=== PATIENT | male | born 1960 | race Caucasian/White ===

== ENCOUNTER 2018-05-25 11:09 | Emergency (ER) | payer OTHER ==
[2018-05-25 11:27] VITALS: BP 160/91; PULSE 71; RESP 17; TEMP 97.9; O2SAT 99
--- NOTE | 2018-05-25 12:41 | RAD ---
Date of service: 05/25/2018 PROCEDURE: Radiographs of the left clavicle. HISTORY: Questionable trauma-r/o fx COMPARISON: Correlation made with concurrent radiographs of the left shoulder FINDINGS: LEFT CLAVICLE: No fracture or focal lesion. JOINTS: Left acromioclavicular and glenohumeral joints are grossly unremarkable. SOFT TISSUES: Grossly unremarkable. OTHER FINDINGS: None. IMPRESSION: Normal radiographs of the left clavicle.
--- NOTE | 2018-05-25 13:14 | RAD ---
Date of service: 05/25/2018 PROCEDURE: Radiographs of the Left Shoulder HISTORY: ? trauma - r/o fx COMPARISON: No prior. FINDINGS: BONES: No fracture. JOINTS: No significant appearing glenohumeral and acromioclavicular arthrosis SOFT TISSUES: Mild soft tissue bulging prominence superior aspect of left acromioclavicular joint OTHER FINDINGS: None. IMPRESSION: No fracture or lytic lesions. No dislocation.
--- NOTE | 2018-05-25 13:16 | C.PDOC ---
History Of Present Illness 57 y/o male presents to the ER for evaluation of left shoulder pain which began last night. Patient states that he fell asleep with his left arm underneath him. Patient reports that he did not take any medications for the pain. Denies having direct trauma, CP,SOB,weakness and numbness to left arm. Time Seen by Provider: 05/25/18 11:22 Chief Complaint (Nursing): Upper Extremity Problem/Injury History Per: Patient History/Exam Limitations: no limitations Onset/Duration Of Symptoms: Days Current Symptoms Are (Timing): Still Present Severity: Moderate Past Medical History Reviewed: Historical Data, Nursing Documentation, Vital Signs Vital Signs: Last Vital Signs Temp 97.9 F 05/25/18 11:23 Pulse 71 05/25/18 11:23 Resp 17 05/25/18 11:23 BP 160/91 H 05/25/18 11:23 Pulse Ox 99 05/25/18 11:23 - Medical History PMH: No Chronic Diseases Denies: Chronic Kidney Disease Surgical History: No Surg Hx Family History: States: No Known Family Hx - Social History Hx Alcohol Use: No Hx Substance Use: No Review Of Systems Except As Marked, All Systems Reviewed And Found Negative. Cardiovascular: Negative for: Chest Pain Respiratory: Negative for: Shortness of Breath Musculoskeletal: Positive for: Shoulder Pain (left shoulder pain) Neurological: Negative for: Weakness, Numbness Physical Exam - Physical Exam Appears: Non-toxic, No Acute Distress Skin: Normal Color, Warm, Dry Head: Atraumatic, Normacephalic Eye(s): bilateral: Normal Inspection Nose: Normal Oral Mucosa: Moist Neck: Supple Chest: Symmetrical Cardiovascular: Rhythm Regular Respiratory: Normal Breath Sounds, No Rales, No Rhonchi, No Wheezing Extremity: Normal ROM, Tenderness (tenderness to proximal medial aspect of left clavicle, tenderness to anterior aspect of left shoulder), No Swelling Neurological/Psych: Oriented x3, Normal Speech ED Course And Treatment O2 Sat by Pulse Oximetry: 99 (RA) Pulse Ox Interpretation: Normal Medical Decision Making Medical Decision Making: Plan: --X-Ray-Left Clavicle --X-Ray-Left Shoulder Updates: X-Rays are negative for fracture or dislocations.Patient has been discharged and instructed to follow up with PMD in 2-3 days. Disposition - [facility] - Disposition: HOME/ ROUTINE Disposition Time: 12:20 Condition: GOOD Additional Instructions: MAYNOR SONI, thank you for letting us take care of you today. The emergency medical care you received today was directed at your acute symptoms. If you were prescribed any medication, please fill it and take as directed. It may take several days for your symptoms to resolve. Return to the Emergency Department if your symptoms worsen, do not improve, or if you have any other problems. Please contact your doctor or call one of the physicians/clinics you have been referred to that are listed on the Patient Visit Information form that is included in your discharge packet. Bring any paperwork you were given at [facility] with you along with any medications you are taking to your follow up visit. Our treatment cannot replace ongoing medical care by a primary care provider outside of the emergency department. Thank you for allowing the [facility] team to be part of your care today. Follow up with your primary care doctor in 2-3 days for re-evaluation and further management. Prescriptions: Ibuprofen [Motrin] 600 mg PO Q6 PRN #20 tab PRN Reason: Pain, Moderate (4-7) Instructions: Shoulder Sprain (DC) Forms: [employer] (Nauruan) - Clinical Impression Clinical Impression: Shoulder sprain - Scribe Statement The provider has reviewed the documentation as recorded by the Uzma Marc Provider Attestation: All medical record entries made by the Taraibjoel were at my direction and personally dictated by me. I have reviewed the chart and agree that the record accurately reflects my personal performance of the history, physical exam, medical decision making, and the department course for this patient. I have also personally directed, reviewed, and agree with the discharge instructions and disposition.
== END 2018-05-25 12:52 | disposition home or self-care (01) ==
LOC: C.ER 11:09
DX: S43.402A Unspecified sprain of left shoulder joint, initial encounter (principal); X58.XXXA Exposure to other specified factors, initial encounter